=== PATIENT | female | born 1960 | race Caucasian/White ===

== ENCOUNTER 2020-08-10 05:52 | Day surgery (SDC) | payer OTHER ==
[~2020-08-10] VITALS: Ht 170.2 cm; Wt 72.6 kg
== END 2020-08-10 19:50 | disposition home or self-care (01) ==
LOC: ER 05:52 → CIR.AMB 08:33
PROVIDERS: ATTEND Urology
DX: N20.1 Calculus of ureter (principal); Z20.828 Contact with and (suspected) exposure to other viral communicable diseases